=== PATIENT | male | born 1955 | race Caucasian/White ===

== ENCOUNTER 2019-12-22 07:51 | Inpatient (IN) | payer OTHER ==
[2019-12-22] VITALS (270 sets, daily range): BP systolic 99–110; BP diastolic 83–89; PULSE 107–127; TEMP 97.5–97.6; O2SAT 92–97
[~2019-12-22] VITALS: Ht 180.3 cm; Wt 82.7 kg
[2019-12-22 08:55] LABS: BASO % 0.3 % (0.0-2.0); EOS % 0.5 % (0-4.0); GRAN # 5.4 (1.4-6.5); GRAN % 73.6 % (42.2-75.2); HEMATOCRIT 44.7 % (42.0-52.0); HEMOGLOBIN 14.4 g/dl (13.5-18.0); LYMPH # 1.3 (1.2-3.4); LYMPH % 17.8 % (20.0-51.0); MEAN CELL VOLUME 90 fl (80.0-100.0); MEAN CORPUSCULAR HEMOGLOBIN 29 pg (27.0-31.0); MEAN CORPUSCULAR HGB CONC 32 g/dl (33.0-37.0); MONO # 0.6 (0.1-0.6); MONO % 7.5 % (1.7-9.3); PLATELET COUNT 291 K/mm3 (130-400); RED BLOOD COUNT 4.97 M/mm3 (4.20-5.60); REDCELL DISTRIBUTION WIDTH-CV 15.2 % (11.5-14.5)
[2019-12-22 09:07] LABS: ALANINE AMINOTRANSFERASE 86 U/L (21-72); ALBUMIN 3.9 gm/dL (3.5-5.0); ALKALINE PHOSPHATASE 77 U/L (50-136); ANION GAP 8 mmol/L (7-16); AST,SGOT 45 U/L (15-37); BILIRUBIN,TOTAL 1.2 mg/dL (0.0-1.0); BLOOD UREA NITROGEN 21 mg/dL (9-20); CALCIUM 8.9 mg/dL (8.4-10.2); CARBON DIOXIDE 27 mmol/L (22-30); CHLORIDE 102 mmol/L (98-107); CREATININE, serum 0.91 (0.66-1.25); GLUCOSE 126 mg/dL (74-106); LIPASE 70 U/L (23-300); POTASSIUM 4.3 mmol/L (3.4-5.0); SODIUM 137 mmol/L (137-145); TOTAL PROTEIN 6.5 gm/dL (6.4-8.2)
[2019-12-22 09:14] LABS: C-REACTIVE PROTEIN < 0.5 mg/dL (0.0-0.9)
[2019-12-22 13:37] LABS: TROPONIN-I 0.018 ng/mL (0.000-0.035)
--- NOTE | 2019-12-22 14:45 | NUR ---
Phone report received from NUBIA Deras RN at 1315. Pt arrived to [facility] room 17 via stretcher at 1445. Pt A/Ox4. denies any pain. REmains on cardizem gtt for Afib RVR. HR 130s after transfer to bed. Assessment completed. Call light in reach.
[2019-12-22 16:04] LABS: COLLECTION METHOD CLEAN CATCH
[2019-12-22 16:10] LABS: PH 5 (5-8); SQUAMOUS EPITHELIAL 0-2 /hpf; URINE APPEARANCE Clear; URINE BACTERIA None Seen /hpf; URINE BILIRUBIN Negative (NEGATIVE); URINE BLOOD 2+ (NEGATIVE); URINE COLOR Yellow; URINE GLUCOSE Negative (NEGATIVE); URINE KETONE Trace (NEGATIVE); URINE LEUKOCYTE ESTERASE Negative (NEGATIVE); URINE NITRATE Negative (NEGATIVE); URINE PROTEIN(semi-quant) Negative (NEGATIVE); URINE RBC 0-2 /hpf; URINE UROBILINOGEN Negative (NEGATIVE)
--- NOTE | 2019-12-22 19:05 | NUR ---
RECEIVED REPORT FROM SHANNA KELLOGG RN. PT SITTING UP IN BED WATCHING TV ON RA. DENIES ANY CP OR PRESSURE. CALL LIGHT AND URINAL WITHIN REACH. VSS. SEE GTT TITRATIONS FLOWSHEET.
--- NOTE | 2019-12-22 19:34 | NUR ---
report given to naye gaming
--- NOTE | 2019-12-22 21:43 | NUR ---
NOTIFIED DR HERNANDEZ OF PT'S HR 110-120s. NEW ORDERS RECEIVED. SEE DEC.
[2019-12-23] VITALS (597 sets, daily range): BP systolic 100–118; BP diastolic 72–100; PULSE 99–120; TEMP 97.2–98; O2SAT 87–100
[2019-12-23 05:17] LABS: BASO % 0.4 % (0.0-2.0); EOS % 0.3 % (0-4.0); GRAN # 5.4 (1.4-6.5); GRAN % 78.4 % (42.2-75.2); HEMATOCRIT 41.3 % (42.0-52.0); HEMOGLOBIN 13.3 g/dl (13.5-18.0); LYMPH % 14.1 % (20.0-51.0); MEAN CELL VOLUME 91 fl (80.0-100.0); MEAN CORPUSCULAR HEMOGLOBIN 29 pg (27.0-31.0); MEAN CORPUSCULAR HGB CONC 32 g/dl (33.0-37.0); MEAN PLATELET VOLUME 9.7 fl (7.4-10.4); MONO # 0.5 (0.1-0.6); MONO % 6.7 % (1.7-9.3); PLATELET COUNT 268 K/mm3 (130-400); RED BLOOD COUNT 4.56 M/mm3 (4.20-5.60); REDCELL DISTRIBUTION WIDTH-CV 15.2 % (11.5-14.5)
[2019-12-23 05:34] LABS: ALBUMIN 3.6 gm/dL (3.5-5.0); BILIRUBIN,TOTAL 1.1 mg/dL (0.0-1.0); CALCIUM 8.7 mg/dL (8.4-10.2); CHOLESTEROL RISK RATIO 3.2; CREATININE, serum 0.82 (0.66-1.25); POTASSIUM 3.9 mmol/L (3.4-5.0); TOTAL PROTEIN 6.1 gm/dL (6.4-8.2)
--- NOTE | 2019-12-23 10:20 | NUR ---
Visited, listened, and provided spiritual care.
--- NOTE | 2019-12-23 19:00 | NUR ---
RECEIVED REPORT FROM ALBERTO EUGENE. PT SITTING UP IN RECLINER ASLEEP. NO ACUTE S/S OF DISTRESS NOTED. VSS. CALL LIGHT AND URINAL WITHIN REACH. PT ON RA.
--- NOTE | 2019-12-23 19:02 | NUR ---
Bedside report given to ALBERTO Garza.
[2019-12-24] VITALS (869 sets, daily range): BP systolic 92–108; BP diastolic 73–80; PULSE 96–114; TEMP 97.8–98.5; O2SAT 91–100
--- NOTE | 2019-12-24 04:31 | NUR ---
Pt on RA >24hrs; completing intervention per protocol.
[2019-12-24 05:26] LABS: CALCIUM 8.8 mg/dL (8.4-10.2); MAGNESIUM 1.9 mg/dL (1.6-2.3); POTASSIUM 4.2 mmol/L (3.4-5.0)
--- NOTE | 2019-12-24 08:00 | NUR ---
Shift assessment complete at this time. Plan of care reviewed at bedside with patient. Additional time taken to address any other needs or concerns. Vitals stable at this time. Pt denies pain or any other discomforts. Bed in low position, call light within reach, will continue to monitor.
--- NOTE | 2019-12-24 12:30 | NUR ---
Pt resting comfortably at this time. Denies pain or any other discomforts. Vitals stable at this time. Will continue to monitor.
--- NOTE | 2019-12-24 16:00 | NUR ---
Pt resting comfortably in bed. Denies pain or any other discomfort. Vitals stable at this time. Bed in low position, call light within reach, will continue to monitor.
--- NOTE | 2019-12-24 18:55 | NUR ---
RECEIVED REPORT FROM ALBERTO EUGENE. PT SITTING UP IN RECLINER. DENIES ANY NEEDS. VSS. CALL LIGHT WITHIN REACH. SEE GTT TITRATIONS FLOWSHEET.
--- NOTE | 2019-12-24 18:58 | NUR ---
Bedside report given to ALBERTO Garza.
[2019-12-25] VITALS (700 sets, daily range): BP systolic 102–136; BP diastolic 60–96; PULSE 63–91; TEMP 97.4–98.1; O2SAT 90–100
--- NOTE | 2019-12-25 07:00 | NUR ---
Bedside report received from ALBERTO Garza. Patient sitting in recliner with no complaints. Amiodarone infusing at prescribed rate. Care assumed at this time.
--- NOTE | 2019-12-25 11:19 | NUR ---
TRAFFIC WAREHOUSE SUPERVISOR student met with the patient to complete initial intake. The patient lives alone in [place]. The patient denies DME usage and states he is independent with ADLs. The patient does not have a PCP but was interested in a list of providers that serve the [place] area. The patient receives medications from [facility]. The patient is self-pay and may need medication voucher assistance at discharge. The patient does not have advanced directives in the EMR. DPOA-HC form provided. As mentioned above the patient is self-pay. French with finance will met with the patient this day to complete Medicaid application. The patient plans to return home at discharge with his boss/friend Kira providing transportation. student services advisor will continue to monitor.
--- NOTE | 2019-12-25 13:55 | NUR ---
PATIENT LEAVES FOR DIETARY SERVICES MANAGER AT THIS TIME.
--- NOTE | 2019-12-25 14:19 | NUR ---
SEE MERGE DOCUMENTATION FOR MEDICATION ADMINISTRATION TIMES AND INTRA/POST PROCEDURESEDATION ASSESSMENTS.
--- NOTE | 2019-12-25 15:55 | NUR ---
Patient returns from hoisting laborer. TR band to right radial site, 14 cc in balloon. Patient awake and alert. He is able to verbalize his needs. Care take over at this time.
--- NOTE | 2019-12-25 19:10 | NUR ---
RECEIVED REPORT FROM ALBERTO SYED. PT SITTING UP IN RECLINER. VSS. CALL LIGHT AND URINAL WITHIN REACH. DENIES ANY CP. DENIES ANY NEEDS.
--- NOTE | 2019-12-25 19:23 | NUR ---
REPORT GIVEN TO ALBERTO MONTERO. PATIENT RESTING IN RECLINER. NO COMPLAINTS AT THIS TIME. TR BAND IN PLACE, ALL AIR HAS BEEN REMOVED. NO S/S BLEEDING OR OOZING.
--- NOTE | 2019-12-25 23:07 | NUR ---
Pt on RA > 24hrs. Completing O2 check per respiratory protocol.
[2019-12-26] VITALS (380 sets, daily range): BP systolic 101–133; BP diastolic 61–77; PULSE 61–79; TEMP 97.8–98; O2SAT 84–100
--- NOTE | 2019-12-26 10:54 | NUR ---
Initial visit; Kira thanked Juke Box Mechanic for looking in on him and offering spiritual care, though patient declined at this time.
[2019-12-26 13:01] LABS: BASO % 0.7 % (0.0-2.0); EOS # 0.1 (0.0-0.7); GRAN # 4.2 (1.4-6.5); GRAN % 70.3 % (42.2-75.2); HEMATOCRIT 48.9 % (42.0-52.0); HEMOGLOBIN 15.7 g/dl (13.5-18.0); LYMPH # 1.1 (1.2-3.4); LYMPH % 17.8 % (20.0-51.0); MEAN CELL VOLUME 90 fl (80.0-100.0); MEAN CORPUSCULAR HEMOGLOBIN 29 pg (27.0-31.0); MEAN CORPUSCULAR HGB CONC 32 g/dl (33.0-37.0); MEAN PLATELET VOLUME 10.6 fl (7.4-10.4); MONO # 0.6 (0.1-0.6); PLATELET COUNT 293 K/mm3 (130-400); RED BLOOD COUNT 5.42 M/mm3 (4.20-5.60); REDCELL DISTRIBUTION WIDTH-CV 14.8 % (11.5-14.5)
[2019-12-26 13:10] LABS: CREATININE, serum 0.9 (0.66-1.25); POTASSIUM 4.1 mmol/L (3.4-5.0)
[2019-12-26] MEDS ORDERED: ELIQUIS 5MG PO (14:40)
[2019-12-26] MEDS ORDERED: CORDARONE200 MG/TAB PO (14:42)
[2019-12-26] MEDS ORDERED: NITROSTAT0.4 MG/TAB SL (14:43)
[2019-12-26] MEDS ORDERED: LASIX 40MG TABL40 MG PO (14:43)
[2019-12-26] MEDS ORDERED: LOPRESSOR 550 MG/TAB PO (14:43)
[2019-12-26] MEDS ORDERED: PRINIVIL5 MG PO (14:44)
--- NOTE | 2019-12-26 15:03 | NUR ---
The patient is to discharge home today, 12/25. The patient was needing a medication voucher. A voucher was provided for [facility] for $55.29. CADD DRAFTER student faxed the voucher to [facility] and gave the original to the patient. The patient's friend/boss, Kira will transport the patient to [facility] then home. There are no additional needs at this time.
--- NOTE | 2019-12-26 16:45 | NUR ---
DISCHARGE PACKET AND MEDICATIONS REVIEWED WITH PATIENT. FOLLOW UP APPOINTMENTS REVIEWED WITH THE PATIENT. OVER 30 MINUTES WAS DEDICATED TO INSTRUCTION ABOUT HOW TO TAKE MEDICATIONS AND WHEN. THE PATIENT VERBALIZES UNDERSTANDING.
== END 2019-12-26 16:50 | disposition home or self-care (01) | DRG 286 ==
LOC: COL.ER 07:51 → IMCU 10:14 → ICU 10:14
PROVIDERS: Family Medicine; Hospitalist; Physician Assistant; ADMIT Internal Medicine
PROC: 4A023N7 Measurement of Cardiac Sampling and Pressure, Left Heart, Percutaneous Approach (ICD-10-PCS; principal; 2019-12-25)
PROC: B2111ZZ Fluoroscopy of Multiple Coronary Arteries using Low Osmolar Contrast (ICD-10-PCS; 2019-12-25)
PROC: 5A2204Z Restoration of Cardiac Rhythm, Single (ICD-10-PCS; 2019-12-25)
PROC: B24BZZ4 Ultrasonography of Heart with Aorta, Transesophageal (ICD-10-PCS; 2019-12-25)
DX: I48.91 Unspecified atrial fibrillation (principal); I50.21 Acute systolic (congestive) heart failure; I50.20 Unspecified systolic (congestive) heart failure; K76.0 Fatty (change of) liver, not elsewhere classified; N20.0 Calculus of kidney; F17.210 Nicotine dependence, cigarettes, uncomplicated; I07.1 Rheumatic tricuspid insufficiency; Z88.0 Allergy status to penicillin; I27.20 Pulmonary hypertension, unspecified; I42.9 Cardiomyopathy, unspecified; R73.03 Prediabetes; Z88.1 Allergy status to other antibiotic agents
CPT/HCPCS: 99223-AI; 99232-AI; 99233-AI; 99239; J0282; J1160; J1644; J1650; J1940; J2250; J2405; J2704; J3010; J7030; J7060; Q9967

== ENCOUNTER 2020-05-31 08:11 | Day surgery (SDC) | payer MEDICAID ==
[2020-05-31] VITALS (7 sets, daily range): BP systolic 87–122; BP diastolic 49–72; PULSE 48–58; TEMP 97–97.9
[~2020-05-31] VITALS: Ht 180.3 cm; Wt 77.0 kg
[~2020-05-31 08:11] MED LIST: CORDARONE200 MG/TAB PO; ELIQUIS 5MG PO; LASIX 40MG TABL40 MG PO; LOPRESSOR 550 MG/TAB PO; NITROSTAT0.4 MG/TAB SL; PRINIVIL5 MG PO
[2020-05-31] MEDS ORDERED: CORDARONE200 MG/TAB PO (08:53)
[2020-05-31] MEDS ORDERED: ELIQUIS 5MG PO (08:54)
[2020-05-31] MEDS ORDERED: LOPRESSOR 550 MG/TAB PO (08:55)
[2020-05-31] MEDS ORDERED: LASIX 40MG TABL40 MG PO (08:56)
[2020-05-31] MEDS ORDERED: PRINIVIL10 MG PO (08:56)
[2020-05-31] MEDS ORDERED: NITROSTAT0.4 MG/TAB SL (08:57)
--- NOTE | 2020-05-31 11:51 | NUR ---
Patient arrives back to [facility] [place]rows[place] with IV infusing and oxygen mask intact. Patient monitor applied, vitals stable. Right inguinal hernia dressing is clean/dry/intact. Patient denies pain or nausea.
[2020-05-31] MEDS ORDERED: NORCO 325 MG-51 TAB PO (11:53)
--- NOTE | 2020-05-31 12:00 | NUR ---
Oxygen therapy discontinued at this time. Vitals stable. Patient given muffins and water at this time.
--- NOTE | 2020-05-31 12:05 | NUR ---
Patient up to restroom and is able to urinate without any complications with assist x1.
--- NOTE | 2020-05-31 12:35 | NUR ---
Patient reports pain at incision site. PRN [place] given at this time.
--- NOTE | 2020-05-31 12:55 | NUR ---
Associate Professor Of Theatre contacted to arrange transportation home. Patient's friend is able to come pick patient up until late this afternoon/evening.
--- NOTE | 2020-05-31 13:00 | NUR ---
Patient reports pain is not getting better. Patient educated that we need to wait 45 minutes prior to giving a second tablet. Patient is resting comfortably on cart, rating pain 9/10. Patient is not making any facial expressions that show pain. Vitals stable.
--- NOTE | 2020-05-31 13:16 | NUR ---
SHAYLA was notified by the patient's RN that the patient is in need of transport back home and does not have any money on him for a cab. SHAYLA provided a taxi voucher to the patient's RN and the phone number for [employer].
--- NOTE | 2020-05-31 13:20 | NUR ---
Patient reports pain is tolerable and would like to go home now.
--- NOTE | 2020-05-31 13:30 | NUR ---
Dismissal instructions gone over with patient. Patient voices understanding and all questions answered.
--- NOTE | 2020-05-31 13:50 | NUR ---
Patient discharged to ER enterance via wheelchair and to taxi cab per wheelchair without any complications. Patient leaves thanking staff for services.
== END 2020-05-31 13:50 | disposition home or self-care (01) ==
LOC: SDCO 08:11
DX: K40.91 Unilateral inguinal hernia, without obstruction or gangrene, recurrent (principal); F17.210 Nicotine dependence, cigarettes, uncomplicated; K42.9 Umbilical hernia without obstruction or gangrene; I48.0 Paroxysmal atrial fibrillation; Z20.828 Contact with and (suspected) exposure to other viral communicable diseases; Z79.01 Long term (current) use of anticoagulants; R73.03 Prediabetes; Z88.0 Allergy status to penicillin
CPT/HCPCS: J2250; J2704; J7120

== ENCOUNTER 2021-05-03 12:49 | Emergency (ER) | payer MEDICAID ==
[~2021-05-03] VITALS: Ht 180.3 cm; Wt 84.1 kg
[~2021-05-03 12:49] MED LIST changes: +NORCO 325 MG-51 TAB PO; +PRINIVIL10 MG PO
[2021-05-03 13:01] VITALS: TEMP 98.5
[2021-05-03] MEDS ORDERED: MEDROL 4MG DOSPA4 MG PO (13:16)
[2021-05-03] MEDS ORDERED: NORCO 325 MG-51 TAB PO (13:16)
[2021-05-03 13:32] VITALS: BP 135/82; PULSE 80
== END 2021-05-03 13:40 | disposition home or self-care (01) ==
LOC: COL.ER 12:49
DX: M54.5 Low back pain (principal); I10 Essential (primary) hypertension; I25.10 Atherosclerotic heart disease of native coronary artery without angina pectoris; F17.210 Nicotine dependence, cigarettes, uncomplicated; Z79.899 Other long term (current) drug therapy; Z79.01 Long term (current) use of anticoagulants

== ENCOUNTER 2024-03-21 13:38 | Inpatient (IN) | payer MEDICARE ==
[~2024-03-21 13:38] MED LIST changes: +MEDROL 4MG DOSPA4 MG PO; +TOPROL XL 50MG50 MG PO
[2024-03-22] MEDS ORDERED: Lidocaine PF 2% (20 MG/ML) 5 ML VIAL ONE (09:44)
== END 2024-03-23 15:30 | disposition home or self-care (01) | DRG 309 ==
LOC: COL.ER 13:38 → MEDICAL 13:39 → COL.ER 17:50 → MEDICAL 03-23 15:30
PROVIDERS: ADMIT Internal Medicine
DX: I48.0 Paroxysmal atrial fibrillation (principal); I50.22 Chronic systolic (congestive) heart failure; N17.9 Acute kidney failure, unspecified; I48.92 Unspecified atrial flutter; E78.5 Hyperlipidemia, unspecified; T50.2X5A Adverse effect of carbonic-anhydrase inhibitors, benzothiadiazides and other diuretics, initial encounter; I11.0 Hypertensive heart disease with heart failure; Z79.01 Long term (current) use of anticoagulants; Z72.0 Tobacco use; Z79.899 Other long term (current) drug therapy; Z88.0 Allergy status to penicillin
CPT/HCPCS: J2704

== ENCOUNTER 2024-04-30 11:13 | Observation (INO) | payer MEDICARE ==
[~2024-04-30] VITALS: Ht 180.3 cm; Wt 78.3 kg
[2024-04-30] MEDS ORDERED: Furosemide 40 MG/4 ML VIAL IV ONE (11:45)
[2024-04-30 12:03] LABS: BASO % 0.6 % (0.0-2.0); EOS % 0.3 % (0.0-4.0); GRAN # 5.1 K/mm3 (1.4-6.5); HEMATOCRIT 42.3 % (42.0-52.0); HEMOGLOBIN 13.1 g/dl (13.5-18.0); LYMPH # 1.1 K/mm3 (1.2-3.4); LYMPH % 15.4 % (20.0-51.0); MEAN CELL VOLUME 94 fl (80.0-100.0); MEAN CORPUSCULAR HEMOGLOBIN 29 pg (27-31); MEAN CORPUSCULAR HGB CONC 31 g/dl (33.0-37.0); MEAN PLATELET VOLUME 10.3 fl (7.4-10.4); MONO # 0.7 K/mm3 (0.1-0.6); MONO % 9.4 % (1.7-9.3); PLATELET COUNT 238 K/mm3 (130-400); REDCELL DISTRIBUTION WIDTH-CV 15.8 % (11.5-14.5)
[2024-04-30 12:08] LABS: BILIRUBIN,TOTAL 1.2 mg/dL (0.2-1.2); CALCIUM 9.6 mg/dL (8.4-10.2); CREATININE, serum 1.43 mg/dL (0.72-1.25); POTASSIUM 4.3 mEq/L (3.5-4.5); TOTAL PROTEIN 6.8 g/dl (6.2-8.1)
[2024-04-30 12:16] LABS: TROPONIN-I 0.012 ng/mL (0.00-0.033)
[2024-04-30] MEDS ORDERED: Nicotine 21 MG DAILY PATCH TD PRN (14:00)
[2024-04-30 14:25] VITALS: BP 130/83; PULSE 112; TEMP 97.6
--- NOTE | 2024-04-30 15:12 | NUR ---
PATIENT ARRIVED TO MEDICAL FLOOR FROM ED AT APPROX 1424. ALERT AND ORIENTED. PATIENT ORIENTED TO ROOM, AND AMBULATED TO THE RESTROOM. GAIT STEADY. INAKE AND ASSSESSMENT COMPLETE. NO SKIN ISSUES NOTED. PITTING +2 EDEMA TO BLE. ABD IS DISTENDED, AND PATIENT SAYS HIS CHEST FEELS HEAVY WHEN HE BREATHES. VSS. MED REC COMPLETE. TELEMETRY ON. DENIES PAIN OR DISCOMFORT. CALL LIGHT WITHIN REACH.
--- NOTE | 2024-04-30 19:05 | NUR ---
Patient resting in bed. Denies any pain at this time. Snack and beverages provided, denies any other needs. Assessment complete. IV in left wrist flushes easily without complications. Call light and personal items in reach. Bed in low position.
[2024-04-30 19:48] VITALS: BP 130/73; PULSE 58; TEMP 98.1
[2024-04-30] MEDS ORDERED: Apixaban 5 MG TABLET PO SCH (21:00)
[2024-04-30] MEDS ORDERED: Furosemide 100 MG/10 ML VIAL IV SCH (21:00)
[2024-04-30 21:13] VITALS: BP_SYST 130
[2024-04-30 22:54] VITALS: BP 112/73; PULSE 85; TEMP 98.4
[2024-05-01 00:36] VITALS: BP_SYST 112
[2024-05-01 03:26] VITALS: BP 104/71; PULSE 68; TEMP 98.4
[2024-05-01 04:09] VITALS: BP_SYST 104
[2024-05-01 06:06] LABS: CALCIUM 8.3 mg/dL (8.4-10.2); CREATININE, serum 1.81 mg/dL (0.72-1.25); MAGNESIUM 1.9 mg/dL (1.6-2.6); POTASSIUM 3.7 mEq/L (3.5-4.5)
[2024-05-01 08:00] VITALS: BP 111/70; PULSE 96; TEMP 98.1
--- NOTE | 2024-05-01 08:37 | NUR ---
THIS RN CALLED STEFAN WITH VASCULAR FOR ECHO. STEFAN NOTIFIED THIS NURSE THAT AN ECHO WAS DONE ON THIS PATIENT IN FEBRUARY 2024 DURING DOWNTIME. STEFAN PLACED COPY IN THE CHART. THIS NURSE NOTIFIED DR REYNOLDS. DR REYNOLDS IS OK WITH CANCELLING NEW ECHO ORDER.
[2024-05-01] MEDS ORDERED: Amiodarone 200 MG TAB PO SCH (09:00)
[2024-05-01] MEDS ORDERED: Lisinopril 10 MG TAB PO SCH (09:00)
[2024-05-01 09:03] VITALS: BP_SYST 111
[2024-05-01] MEDS ORDERED: LASIX 20MG TABL20 MG PO (09:56)
--- NOTE | 2024-05-01 11:05 | NUR ---
THIS RN PROVIDED PATIENT WITH DISCHARGE INSTRUCTIONS AND EDUCATION. ALL QUESTIONS ANSWERED. INT TO L WRIST DISCONTINUED. MINIMAL BLOOD NOTED.
--- NOTE | 2024-05-01 11:37 | NUR ---
SHAYLA notified that patient is discharged and needs transportation to home. SHAYLA met with patient to verify his address of [address] [place] [address]. SW inquired about contact listed on face sheet, Ajay. Patient stated "He's my old boss. I just listed him. He's no one to me." Patient stated he has a number for "[employer]" taxi service but patient voiced he only has a $50 bill and doesn't know if water tanker driver has change for a $10 ride. Patient called [employer] and was told that they are not available until 1800. SHAYLA spoke with SHAYLA Oreilly to schedule Uber ride for patient to home.
--- NOTE | 2024-05-01 11:56 | NUR ---
PATIENT ESCORTED OFF UNIT VIA WHEELCHAIR WITH PCT. ALL BELONGINGS WITH PATIENT
--- NOTE | 2024-05-01 12:59 | NUR ---
D: Railroad Auditor stopped by room on rounds. A: Pt was resting on the side of the bed. Pt is getting dischared and as no needs right now. P: Railroad Auditor informed pt that if he needed anything to let his nurse know. Railroad Auditor will follow up as needed.
== END 2024-05-01 11:48 | disposition home or self-care (01) ==
LOC: COL.ER 11:13 → SURG 13:12
PROVIDERS: Personal Emergency Response Attendant; ADMIT Internal Medicine
DX: I50.21 Acute systolic (congestive) heart failure (principal); I48.0 Paroxysmal atrial fibrillation; K76.0 Fatty (change of) liver, not elsewhere classified; N18.9 Chronic kidney disease, unspecified; I42.8 Other cardiomyopathies; E87.70 Fluid overload, unspecified; R91.1 Solitary pulmonary nodule; F17.210 Nicotine dependence, cigarettes, uncomplicated; Z79.01 Long term (current) use of anticoagulants
CPT/HCPCS: G0378; J1940